=== PATIENT | female | born 1975 | race Caucasian/White ===

== ENCOUNTER 2017-01-22 14:32 | Emergency (ER) | payer OTHER ==
[~2017-01-22] VITALS: Ht 165.1 cm; Wt 76.5 kg
[~2017-01-22 14:32] MED LIST: FERR-55 PO; HYDR-3498 PO; IBUPROFEN; MECL25TA2 PO; NAPR-688 PO; ONDA4TAB35 PO; POLY17PO6 PO
[2017-01-22 14:35] VITALS: Ht 165.1 cm; Wt 76.5 kg
[2017-01-22] MEDS ORDERED: ONDANSETRON (ODT) 4 MG TAB ODT STA (16:20)
[2017-01-22] MEDS ORDERED: MECLIZINE 12.5 MG TAB PO STA (16:20)
[2017-01-22] MEDS ORDERED: ERYTOPOI LEFT EYE (16:50)
[2017-01-22] MEDS ORDERED: ONDA4TAB14 PO (16:50)
[2017-01-22] MEDS ORDERED: MECL12.574 PO (16:50)
--- NOTE | 2017-01-22 17:08 | ERD ---
ER Documentation Chief Complaint Date/Time DATE: 01/22/17 TIME: 17:00 Chief Complaint dizziness x 3 days, left eye sty x 3 weeks HPI This is a 41-year-old female presenting to the emergency room with multiple complaints. Patient's complaining of dizziness, describing as the room is spinning when she turns her head. She states that it is worse when she turns her head to the right. She admits to having nausea and feeling like she is imbalance. She denies any headaches, tinnitus, ear pain, or recent upper respiratory infections, fevers. She denies any episodes of vomiting. Patient has not tried any medications for this. Patient is also complaining of stye on her left upper eyelid for the past 3 weeks. She denies any pain associated with it. She denies any vision changes, eye discharge. ROS All systems reviewed and are negative except as per history of present illness. Medications Home Meds Active Scripts Erythromycin* (Erythromycin* Ophthalmic) 1 Applic Oint, 1 APPLIC LEFT EYE QID for 7 Days, EA Prov:MAIA JARRETT PA-C 01/22/17 Ondansetron (Ondansetron Odt) 4 Mg Tab.rapdis, 4 MG PO Q6H Y for NAUSEA AND/OR VOMITING, #14 TAB Prov:MAIA JARRETT PA-C 01/22/17 Meclizine Hcl* (Antivert*) 12.5 Mg Tab, 25 MG PO Q6H Y for DIZZINESS, #20 TAB Prov:MAIA JARRETT PA-C 01/22/17 Polyethylene Glycol* (Miralax*) 17 Gm Powd.pack, 17 GM PO DAILY, #7 PACKET Prov:JORGE L ALEXANDER DO 02/17/16 Polyethylene Glycol* (Miralax*) 17 Gm Powd.pack, 17 GM PO BID, #60 PACKET Prov:JORGE L ALEXANDER DO 02/17/16 Ferrous Sulfate* (Ferrous Sulfate*) 325 Mg Tablet, 325 MG PO BID, #30 TAB Prov:JORGE L ALEXANDER DO 02/17/16 Meclizine Hcl* (Antivert*) 25 Mg Tablet, 25 MG PO Q6H Y for DIZZINESS, #20 TAB Prov:JORGE L ALEXANDER DO 02/17/16 Hydrocodone Bit-Acetaminophen* ([place]*) 5-325 Mg Tab, 1 TAB PO Q6 Y for PAIN, # 7 TAB Prov:JORGE L ALEXANDER DO 02/17/16 Ondansetron Hcl* (Zofran* ODT) 4 mg -ODT Tab.disper, 4 MG PO Q6 Y for NAUSEA AND /OR VOMITING, #10 TAB Prov:JORGE L ALEXANDER DO 02/17/16 Naproxen* (Naproxen*) 500 Mg Tablet, 500 MG PO BID, #20 TAB Prov:JORGE L ALEXANDER DO 02/17/16 Reported Medications [Ibuprofen] No Conflict Check 05/30/13 Allergies Allergies: Coded Allergies: No Known Allergy (Unverified , 06/23/14) PMhx/Soc History of Surgery: Yes (C SECTION X4, TUBAL LIGATION) Anesthesia Reaction: No Hx Neurological Disorder: No Hx Respiratory Disorders: No Hx Cardiac Disorders: No Hx Psychiatric Problems: No Hx Miscellaneous Medical Probl: No Hx Alcohol Use: No Hx Substance Use: No Hx Tobacco Use: No Physical Exam Vitals Vital Signs Date Time Temp Pulse Resp B/P Pulse Ox O2 Delivery O2 Flow Rate FiO2 01/22/17 14:35 97.9 105 18 106/70 99 Physical Exam GENERAL: well-developed/well-nourished, in no apparent distress, non-toxic appearing HENT: NC/AT, bilateral tympanic membrane is normal with good cone of light, nares patent, oropharynx clear without exudates EYES: Conjunctiva normal, PERRLA, EOMI, no nystagmus noted 0.5cm lesion on left upper eyelid NECK: Supple, no lymphadenopathy PULM: CTA bilaterally, no rales, rhonchi, or wheezing heard CV: Normal S1S2, RRR, good capillary refill GI: Soft, non-distended, normal bowel sounds, non-tender BACK: No midline tenderness, no masses, No CVAT EXT: No clubbing, cyanosis, or edema NEURO: Alert and orientated to person, place, and time. CN II-IIX intact. Gait and coordination were normal. Hand handbag parts cutter strength were equal and within normal limits SKIN: Intact, normal turgor PSYCH: Normal mood and mentation, patient denied SI Results 24 hrs Current Medications Medications (Trade) Dose Ordered Sig/Naldo Route PRN Reason Start Time Stop Time Status Last Admin Dose Admin Meclizine HCl (Antivert) 25 mg ONCE STAT PO 01/22/17 16:20 01/22/17 16:21 DC 01/22/17 16:50 Ondansetron HCl (Zofran Odt) 4 mg ONCE STAT ODT 01/22/17 16:20 01/22/17 16:21 DC 01/22/17 16:49 Procedures/MDM MDM: 41-year-old female presents to the ER with vertigo and lesion on the left upper eyelid which is likely to chalazion versus hordeolum. My clinical suspicion for benign paroxysmal positional vertigo is high due to physical examination. Symptoms were reproduced with movement of head. My other differentials include but not limited to include labyrinthitis, vestibular neuritis, Mnire's disease, acoustic neuroma, otitis media and central causes such as vestibular migraine, brainstem ischemia, and multiple sclerosis. Patient did not have neurological symptoms, headaches, tinnitus or hearing loss. I do not think a CT scan is necessary at this time, as I believe the risks outweigh the benefits since symptoms are most consistent with benign positional vertigo. However, I have given strict precautions to return to the ER if condition is not improving as expected or if condition worsens. In the ED , patient was given Antivert 25mg and Zofran 4mg ODT. DISPOSITION: hemodynamically stable for discharge to home. I have discussed the pathology of the condition. Prescriptions Antivert, Zofran and erythromycin ointment to apply to the left upper eyelid. Discussed warm compresses. 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 Have been given. I have discussed to see a primary care physician for follow-up examination and management. Discussed to return to the ER if condition worsens or not improves as expected. Patient expressed that they agreed and understood this plan. Departure Diagnosis: Primary Impression: Vertigo Additional Impression: Eyelid lesion Condition: Stable Patient Instructions: Tension Headaches, When Your Child Has a Stye, Chalazion , Vertigo, Unspecified Referrals: DOCTOR,NOT ON STAFF (PCP) [facility] YOU HAVE RECEIVED A MEDICAL SCREENING EXAM AND THE RESULTS INDICATE THAT YOU DO NOT HAVE A CONDITION THAT REQUIRES URGENT TREATMENT IN THE EMERGENCY DEPARTMENT. FURTHER EVALUATION AND TREATMENT OF YOUR CONDITION CAN WAIT UNTIL YOU ARE SEEN IN YOUR DOCTORS OFFICE WITHIN THE NEXT 1-2 DAYS. IT IS YOUR RESPONSIBILITY TO MAKE AN APPOINTMENT FOR FOLOW-UP CARE. IF YOU HAVE A PRIMARY DOCTOR --you should call your primary doctor and schedule an appointment IF YOU DO NOT HAVE A PRIMARY DOCTOR YOU CAN CALL OUR PHYSICIAN REFERRAL HOTLINE AT IF YOU CAN NOT AFFORD TO SEE A PHYSICIAN YOU CAN CHOSE FROM THE FOLLOWING [facility] [id number] [facility] [id number] [facility] [address] [facility] [address] [facility] [address] [facility]. [facility] [address] [facility] Hours: Mon - Fri 9:00 AM - 5:00 PM Additional Instructions: FOLLOW UP WITH YOUR PRIMARY CARE PHYSICIAN TOMORROW.Return to this facility if you are not improving as expected. Take all medicines as directed. Return to this facility if you are not improving as expected. MAIA JARRETT PA-C January 22, 2017 17:08
== END 2017-01-22 17:20 | disposition home or self-care (01) ==
LOC: FTE 14:32
DX: R42 Dizziness and giddiness (principal); H57.8 Other specified disorders of eye and adnexa; R11.10 Vomiting, unspecified
CPT/HCPCS: Z7502; Z7610; 99284

== ENCOUNTER 2018-03-18 21:11 | Emergency (ER) | END 2018-03-19 00:18 | disposition home or self-care (01) ==